=== PATIENT | female | born 1985 | race Caucasian/White ===

== ENCOUNTER 2019-01-22 23:38 | Emergency (ER) | payer SELFPAY ==
[~2019-01-22] VITALS: Ht 160 cm; Wt 52.3 kg
[~2019-01-22 23:38] MED LIST: FAMO-96 PO; LORA10TA3 PO; ONDA4TAB8 PO
[2019-01-22 23:43] VITALS: BP 144/74; PULSE 112; RESP 20; Ht 160 cm; Wt 52.3 kg
--- NOTE | 2019-01-23 17:02 | ERD ---
ER Documentation Chief Complaint Chief Complaint states got stung by jelly fish 4 days ago, c/o body rash/sob. lungs clear HPI 33yo F presents with complaint of nausea, vomiting, diarrhea x 2 days. Pt was stung by a jelly fish 4 days prior while in [place] and states to believe is having an allergic reaction. She endorses a rash to her abdomen and bilateral lower extremities which is improved at this time with use of at home, natural remedies, she states the rash is not itchy. She denies wheezes, angioedema, tongue swelling, hives, fevers, or chills. She notes to have earlier felt SOB, but denies current SOB. She denies any known medical conditions, is otherwise healthy. ROS All systems reviewed and are negative except as per history of present illness. Medications Home Meds Active Scripts Loratadine* (Loratadine*) 10 Mg Tablet, 10 MG PO DAILY for allergies, #30 TAB Prov:RAUL SNELL PA-C 01/23/19 Famotidine* (Pepcid*) 20 Mg Tablet, 40 MG PO DAILY for allergies for 4 Days, #8 TAB Prov:RAUL SNELL PA-C 01/23/19 Ondansetron Hcl* (Zofran*) 4 Mg Tablet, 4 MG PO Q6H for NAUSEA AND/OR VOMITING, #10 TAB Prov:RAUL SNELL PA-C 01/23/19 Allergies Allergies: Coded Allergies: No Known Drug Allergies (Verified Allergy, Unknown, 01/22/19) PMhx/Soc Medical and Surgical Hx: pt denies Medical Hx, pt denies Surgical Hx Hx Alcohol Use: No Hx Substance Use: No Hx Tobacco Use: No Smoking Status: Never smoker Physical Exam Vitals Vital Signs Date Temp Pulse Resp B/P (MAP) Pulse Ox O2 O2 Flow FiO2 Time Delivery Rate 01/22/19 97.8 112 20 144/74 99 23:43 (97) Physical Exam GENERAL: Alert and coherent. Well appearing, non-toxic. No acute distress. HEAD: Normocephalic, atraumatic. EYES: EOMI. PERRL. No conjunctival injection. No scleral icterus. No Discharge. No periorbital edema. ENT: Nasal passages patent. Moist mucous membranes. No erythema or tonsillar exudates. No angioedema, no tongue swelling. No drooling. NECK: Supple. Full range of motion. Trachea midline. No lymphadenopathy. RESPIRATORY: No tachypnea. Clear to auscultation bilaterally. No wheezing, rales or rhonchi. No accessory muscle use. Speaking full sentences. CV: Tachycardic. Regular rhythm. No murmurs, rubs, or gallops. ABDOMEN: Soft, non-distended, non-tender. No guarding. No rebound tenderness or rigidity. No masses. Positive bowel sounds in all four quadrants. BACK: Full ROM. No CVA tenderness. EXTREMITIES: No deformity. No clubbing, cyanosis or edema. Equal pulses x 4. SKIN: Warm and dry. Mild erythematous papular rash along the mid abdomen and bilateral lateral thighs consistent with a contact allergy. No ulcerations, no warmth, no discharge, no linear streaking. NEUROLOGIC: Alert and oriented x3. Appropriate speech, mood and affect. Face is symmetric. Speech is normal. CN II-XII intact. Moves all extremities equally. Ambulates with a strong, steady gait. Result Diagram: 01/23/19 0121 01/23/19 0121 Results 24 hrs Laboratory Tests Test 01/23/19 01:21 01/23/19 01:24 01/23/19 01:26 White Blood Count 15.7 10^3/ul Red Blood Count 4.63 10^6/ul Hemoglobin 14.3 g/dl Hematocrit 41.3 % Mean Corpuscular Volume 89.2 fl Mean Corpuscular Hemoglobin 30.9 pg Mean Corpuscular Hemoglobin Concent 34.6 g/dl Red Cell Distribution Width 12.4 % Platelet Count 254 10^3/UL Mean Platelet Volume 8.8 fl Immature Granulocytes % 0.400 % Neutrophils % 80.9 % Lymphocytes % 11.9 % Monocytes % 5.5 % Eosinophils % 1.0 % Basophils % 0.3 % Nucleated Red Blood Cells % 0.0 /100WBC Immature Granulocytes # 0.070 10^3/ul Neutrophils # 12.7 10^3/ul Lymphocytes # 1.9 10^3/ul Monocytes # 0.9 10^3/ul Eosinophils # 0.2 10^3/ul Basophils # 0.1 10^3/ul Nucleated Red Blood Cells # 0.0 10^3/ul Urine Color STRAW Urine Clarity CLEAR Urine pH 6.0 Urine Specific [place] 1.006 Urine Ketones NEGATIVE mg/dL Urine Nitrite NEGATIVE mg/dL Urine Bilirubin NEGATIVE mg/dL Urine Urobilinogen NEGATIVE mg/dL Urine Leukocyte Esterase NEGATIVE Natali/ul Urine Microscopic RBC 0 /HPF Urine Microscopic WBC 0 /HPF Urine Squamous Epithelial Cells FEW /HPF Urine Hemoglobin 1+ mg/dL Urine Glucose NEGATIVE mg/dL Urine Total Protein NEGATIVE mg/dl Sodium Level 142 mmol/L Potassium Level 4.1 mmol/L Chloride Level 105 mmol/L Carbon Dioxide Level 27 mmol/L Anion Gap 10 Blood Urea Nitrogen 11 mg/dl Creatinine 0.59 mg/dl Est Glomerular Filtrat Rate mL/min > 60 mL/min Glucose Level 102 mg/dl Calcium Level 9.5 mg/dl Lipase 122 U/L POC Beta HCG, Qualitative NEGATIVE Bedside Urine pH (LAB) 5.5 Bedside Urine Protein (LAB) Negative Bedside Urine Glucose (UA) Negative Bedside Urine Ketones (LAB) Negative Bedside Urine Blood Trace-lysed Bedside Urine Nitrite (LAB) Negative Bedside Urine Leukocyte Esterase (L Negative Procedures/MDM MDM: This is an otherwise healthy 33yo F who presents to the ED with complaint of nausea, vomiting and diarrhea which she believes to be an allergic reaction from a jelly fish sting. Pt is non-toxic in appearance, NAD, pt is tachycardic but vitals otherwise stable. Afebrile. Physical exam unremarkable other than rash consistent with a contact dermatitis. No abdominal tenderness on exam and therefore advanced imaging not ordered. Basic labs performed and revealed a white count of 15.7, however, I believe this to be d/t pt vomiting rather than d/t bacterial infection. Pt declines anti-nausea medication or medication for rash while in ED. I do not suspect acute abdomen or anaphylaxis at this time. Pt reassured and counseled regarding ED return precautions. At this time I believe pt stable for discharge with outpatient management and follow-up with PCP within next 1-2 days. I have prescribed Zofran for nausea, famotidine and loratadine for contact allergy and have recommended OTC cortisone cream PRN itch as pt denies current itching at this time. Pt expressed verbal understanding and agre ement to treatment plan. All questions addressed and answered. Departure Diagnosis: Primary Impression: Gastroenteritis Additional Impression: Allergic reaction Encounter type: initial encounter Qualified Codes: T78.40XA - Allergy, unspecified, initial encounter Condition: Stable Patient Instructions: First Aid: Allergic Reactions, Gastroenteritis, Viral (6Y-Adult) RAUL SNELL PA-C Jan 23, 2019 17:02
== END 2019-01-23 02:25 | disposition home or self-care (01) ==
LOC: FTE 23:38
DX: K52.9 Noninfective gastroenteritis and colitis, unspecified (principal); R21 Rash and other nonspecific skin eruption
CPT/HCPCS: 80048; 81001; 81003; 81025; 83690; 85025; 87880; 99283